=== PATIENT | male | born 1940 | race Caucasian/White ===

== ENCOUNTER 2018-08-11 06:29 | Inpatient (IN) | payer MEDICARE, OTHER ==
[2018-08-11] VITALS (24 sets, daily range): BP systolic 55–237; BP diastolic 37–212; PULSE 91–129; RESP 17–65; Ht 175.3 cm; Wt 60.4 kg
[~2018-08-11] VITALS: Ht 175.3 cm; Wt 60.4 kg
[~2018-08-11 06:29] MED LIST: ACET325T33 PO; AMLO-145 PO; ASPI-831 PO; BENA40TA54 PO; CHOL200035 PO; DOCU-144 PO; FAMO40TA66; FINA5TAB PO; FLUC100T; HYDR-1666 PO; MEGE625O PO; MEMA5TAB PO; OMEG-135 PO; SERT20OR PO; SIMV20TA2 PO
[2018-08-11] MEDS ORDERED: PIPER-TAZO 3.375 GM IV (PMX) 100 ML IVPB STA (06:32)
[2018-08-11] MEDS ORDERED: VANCOMYCIN 1 GM (PMX) 250 ML IVPB STA (06:32)
[2018-08-11] MEDS ORDERED: SODIUM CHLORIDE 0.9% 1L BAG IV* STA (07:03)
[2018-08-11] MEDS ORDERED: ACETAMINOPHEN 325 MG TAB PO PRN (08:30)
[2018-08-11] MEDS ORDERED: LORAZEPAM 2 MG INJ IV ONE ×2 (08:30→21:30)
[2018-08-11] MEDS ORDERED: ONDANSETRON 4 MG INJ IV PRN ×2 (08:30→13:30)
[2018-08-11] MEDS ORDERED: HALOPERIDOL 5 MG INJ IM ONE (09:00)
[2018-08-11] MEDS ORDERED: ACETAMINOPHEN 650MG/20.3ML CUP GTB ONE (09:00)
--- NOTE | 2018-08-11 09:17 | ERD ---
ER Documentation Chief Complaint Chief Complaint PT BIB RA from [facility] with complain SOB and desaturation today. HPI Patient is a 78-year-old male with previous stroke who presents for pneumonia. Please note the history and physical exam is limited secondary to the patient's mental status at baseline. He is nonverbal. Patient was brought in by ambulance. He came from [facility]. He was transferred for low oxygen saturation and pneumonia. He is warm to touch. He has rhonchi diffusely. His oxygen was 80s on 2 L nasal cannula but is now 99% on 15 L by paramedics. His blood sugar was within normal limits. He was given normal saline 500 mL bolus by paramedics. His primary doctor is Dr. Imer Solomon. ROS All systems reviewed and are negative except as per history of present illness. Medications Home Meds Reported Medications Fluconazole* (Diflucan*) 100 Mg Tablet, DAILY 03/19/13 Famotidine* (Pepcid*) 40 Mg Tablet, DAILY 03/19/13 Sertraline Hcl* (Zoloft*) 20 Mg/Ml Oral.conc, 25 MG PO HS 02/21/13 Cholecalciferol (Vitamin D3) 2,000 Unit Capsule, 2000 UNIT PO DAILY 02/21/13 Hydrocodone Bit/Acetaminophen (Vicodin 5/500 Tablet) 1 Tab Tablet, 1 TAB PO Q6HRS PRN 02/21/13 Simvastatin (Simvastatin) 20 Mg Tablet, 20 MG PO HS 02/21/13 Finasteride* (Proscar*) 5 Mg Tablet, 5 MG PO HS 02/21/13 Memantine* (Namenda*) 5 Mg Tablet, 5 MG PO BID 02/21/13 Megestrol Acetate* (Megace ES*) 625 Mg/5 Ml Oral.susp, 10 ML PO DAILY 02/21/13 Benazepril Hcl* (Lotensin*) 40 Mg Tablet, 20 MG PO DAILY 02/21/13 Fish Oil* (Fish Oil*) 1,000 Mg Cap, 1000 MG PO DAILY 02/21/13 Docusate Sodium* (Colace*) 100 Mg Capsule, 100 MG PO DAILY 02/21/13 Aspirin (Aspirin) 81 Mg Chew, 81 MG PO DAILY 02/21/13 Amlodipine Besylate* (Amlodipine Besylate*) 5 Mg Tablet, 5 MG PO DAILY 02/21/13 Acetaminophen* (Tylenol*) 325 Mg Tablet, 650 MG PO BID 02/21/13 Allergies Allergies: Coded Allergies: No Known Allergy (Unverified , 06/04/14) PMhx/Soc History of Surgery: Yes (gt placement) Anesthesia Reaction: No (unknown) Hx Neurological Disorder: Yes (stroke. dementia, Parkinson's disease) Hx Respiratory Disorders: Yes (pnuemonia, COPD) Hx Cardiac Disorders: Yes (htn,) Hx Psychiatric Problems: Yes (anxiety) Hx Miscellaneous Medical Probl: Yes (dysphagia, gout, BPH, osteoporosis, Hyperlipidemia.) Smoking Status: Never smoker FmHx Unable to obtain Physical Exam Vitals Vital Signs Date Temp Pulse Resp B/P (MAP) Pulse Ox O2 O2 Flow FiO2 Time Delivery Rate 08/11/18 102.7 133 32 103/54 100 Mask 6.0 08:58 (70) 08/11/18 Non 15.0 07:00 Rebreathe r 08/11/18 99.4 102 22 98/68 (78) 100 07:00 08/11/18 Non 15 07:00 Rebreathe r Physical Exam Const: Moderate distress Head: Atraumatic Eyes: Normal Conjunctiva ENT: Normal External Ears, Nose and Mouth. Neck: Full range of motion. No meningismus. Resp: Tachypnea Cardio: Tachycardic rate without murmur Abd: Soft, non tender, non distended. Normal bowel sounds Skin: No petechiae or rashes Back: No midline or flank tenderness Ext: No cyanosis, or edema Neur: Awake but nonverbal at baseline Result Diagram: 08/11/18 0650 08/11/18 0650 Results 24 hrs Laboratory Tests Test 08/11/18 06:50 08/11/18 06:52 08/11/18 07:20 08/11/18 08:46 White Blood Count 13.9 10^3/ul Red Blood Count 3.63 10^6/ul Hemoglobin 11.6 g/dl Hematocrit 39.2 % Mean Corpuscular 108.0 fl Volume Mean Corpuscular 32.0 pg Hemoglobin Mean Corpuscular 29.6 g/dl Hemoglobin Concen t Red Cell 14.6 % Distribution Width Platelet Count 319 10^3/UL Mean Platelet 10.9 fl Volume Immature 0.300 % Granulocytes % Neutrophils % 83.7 % Lymphocytes % 9.3 % Monocytes % 6.2 % Eosinophils % 0.1 % Basophils % 0.4 % Nucleated Red 0.0 /100WBC Blood Cells % Immature 0.040 10^3/ul Granulocytes # Neutrophils # 11.7 10^3/ul Lymphocytes # 1.3 10^3/ul Monocytes # 0.9 10^3/ul Eosinophils # 0.0 10^3/ul Basophils # 0.1 10^3/ul Nucleated Red 0.0 10^3/ul Blood Cells # Prothrombin Time 16.2 Sec Prothrombin Time 1.3 Ratio INR International 1.29 Normalized Ratio Activated 36.6 Sec Partial Thrombopl ast Time Sodium Level 157 mmol/L Potassium Level 5.1 mmol/L Chloride Level 120 mmol/L Carbon Dioxide 33 mmol/L Level Anion Gap 4 Blood Urea 43 mg/dl Nitrogen Creatinine 1.77 mg/dl Est Glomerular mL/min Filtrat Rate mL/min Glucose Level 169 mg/dl Calcium Level 9.3 mg/dl Total Bilirubin 0.5 mg/dl Direct Bilirubin 0.00 mg/dl Indirect 0.5 mg/dl Bilirubin Aspartate Amino 14 IU/L Transf (AST/SGOT) Alanine 24 IU/L Aminotransferase (ALT/SGPT) Alkaline 114 IU/L Phosphatase Troponin I 0.030 ng/ml Total Protein 8.4 g/dl Albumin 3.6 g/dl Globulin 4.80 g/dl Albumin/Globulin 0.75 Ratio POC Venous 2.0 mmol/L 3.7 mmol/L Lactate Urine Color CLAUDIA Urine Clarity CLOUDY Urine pH 5.0 Urine Specific 1.024 [place] Urine Ketones TRACE mg/dL Urine Nitrite NEGATIVE mg/dL Urine Bilirubin NEGATIVE mg/dL Urine 1+ mg/dL Urobilinogen Urine Leukocyte 1+ Carol/ul Esterase Urine Microscopic 12 /HPF RBC Urine Microscopic 45 /HPF WBC Urine Bacteria FEW /HPF Urine Hyaline FEW /HPF Casts Urine Mucus FEW /HPF Urine Hemoglobin NEGATIVE mg/dL Urine Glucose NEGATIVE mg/dL Urine Total 2+ mg/dl Protein Current Medications Medications Dose Sig/Flavia Start Time Status Last (Trade) Ordered Route PRN Stop Time Admin Dose Reason Admin Vancomycin 250 ml @ ONCE STAT 08/11/18 DC 08/11/18 HCl 125 mls/hr IVPB 06:32 07:54 08/11/18 08:31 Piperacillin 100 ml @ ONCE STAT 08/11/18 DC 08/11/18 Sod/ 200 mls/hr IVPB 06:32 07:05 Tazobactam 08/11/18 07:01 Sod Sodium 1,910 ml BOLUS OVER 2 08/11/18 DC 08/11/18 Chloride HOURS STAT 07:03 07:09 (NS) IV* 08/11/18 07:04 Ondansetron 4 mg ER BRIDGE 08/11/18 HCl (Zofran PRN IV 08:30 Inj) NAUSEA/VOMITI 08/12/18 08:29 NG 650 mg ER BRIDGE 08/11/18 Acetaminophen PRN PO 08:30 (Tylenol .MILD PAIN 08/12/18 08:29 Tab) 1-3 OR TEMP Lorazepam 1 mg ONCE ONCE 08/11/18 DC 08/11/18 (Ativan) IV 08:30 08:27 08/11/18 08:31 Haloperidol 5 mg ONCE ONCE 08/11/18 DC 08/11/18 (Haldol) IM 09:00 08:51 08/11/18 09:01 650 mg ONCE ONCE 08/11/18 DC Acetaminophen GTB 09:00 (Tylenol 08/11/18 09:01 Liquid) Procedures/MDM EKG read by me: Rate/Rhythm: Sinus tachycardia Intervals: Normal Impression: Tach cardia without ischemia Chest x-ray shows pneumonia per radiology. Sepsis Documentation: Patient's infectious symptoms have not stabilized and the patient is at risk of rapid decompensation. The patient will be admitted for careful hydration, antibiotic therapy, and infectious source control. SEVERE SEPSIS CRITERIA: Infectious source: Pneumonia End organ damage indicated by: Respiratory failure and lactic acid greater than 2. SEPSIS MANAGEMENT Time of recognition of sepsis: 6:52 AM. Time of recognition of severe sepsis: 6:52 AM. Time of recognition of septic shock: No septic shock at this time. 3 HOUR BUNDLE Blood cultures x 2 before broad-spectrum antibiotics: Yes 30 ml/kg NS bolus completed Initial lactate 2.0 Repeat lactate 3.7 SEPTIC SHOCK ASSESSMENT: No lactic acid > 4.0 No persistent hypotension (SBP < 90 or 40 mmHg drop, MAP < 65) despite 30 mL/kg IV fluid bolus VOLUME REASSESSMENT FOR SEPTIC SHOCK: No septic shock PERSISTENT HYPOTENSION TREATMENT: Comfort care no Central line not Required Vasopressor started not required I considered further perfusion assessment with CVP measurement, SCVO2, bedside ultrasound volume assessment, passive leg raise, trial of further fluid bolus. And proceeded with 30 ml/kg fluid bolus of NSS, broad spectrum antibiotics, and admission. Patient was given vancomycin and Zosyn. Patient will be admitted to the care of the panel team as we have called the primary doctor without return phone call. CRITICAL CARE Critical care time 35 minutes Emergent fluid management while maintaining close respiratory support. Provision of immediate and broad-spectrum antibiotic therapy. Simultaneous assessment for possible sources in order to direct targeted therapy. Consideration for invasive and chemical support to prevent cardiopulmonary collapse. Critical care time is independent of procedures performed. Departure Diagnosis: Primary Impression: Severe sepsis Additional Impressions: PNA (pneumonia) Pneumonia type: due to unspecified organism Laterality: left Lung location: lower lobe of lung Qualified Codes: J18.1 - Lobar pneumonia, unspecified organism Hypernatremia Respiratory failure Chronicity: acute Respiratory failure complication: hypoxia Qualified Codes: J96.01 - Acute respiratory failure with hypoxia Hypoxia Cystitis Dehydration Condition: Serious SOLEDAD CHILD MD August 11, 2018 09:17
[2018-08-11] MEDS ORDERED: ACET325T45 GTB (09:49)
[2018-08-11] MEDS ORDERED: DIVA-75 GTB (09:50)
[2018-08-11] MEDS ORDERED: ASPI-817 GTB (09:50)
[2018-08-11] MEDS ORDERED: POLY17PO6 GTB (09:51)
[2018-08-11] MEDS ORDERED: CLOP75TA19 PO (09:53)
[2018-08-11] MEDS ORDERED: OLAN5TAB36 GTB (09:53)
[2018-08-11] MEDS ORDERED: POTA20LI15 GTB (09:55)
[2018-08-11] MEDS ORDERED: PANT40TA3 GTB (09:56)
[2018-08-11] MEDS ORDERED: SENN-120 GTB (09:56)
[2018-08-11] MEDS ORDERED: NORepinephrine 8MG/250 ML (PMX 250 ML IV STA (10:27)
[2018-08-11] MEDS ORDERED: SOD CHLORIDE 0.9% 1,000 ML IV STA (10:27)
[2018-08-11] MEDS ORDERED: LIDOCAINE 1% (MPF) 5 ML VIAL SC ONE (10:30)
[2018-08-11] MEDS ORDERED: KETOROLAC 30 MG INJ IV STA (10:56)
--- NOTE | 2018-08-11 13:27 | HP ---
Date/Time of Note Date/Time of Note DATE: 08/11/18 TIME: 13:21 Assessment/Plan VTE Prophylaxis Pharmacological prophylaxis: heparin Lines/Catheters IV Catheter Type (from Nrs): Saline Lock Assessment/Plan Hospital Course 78-year-old male with chronic encephalopathy, nonverbal at baseline after cerebrovascular accident sent from [facility] facility with shortness of breath and desaturation admitted and managed as follows: 1. Severe sepsis with septic shock and lactic acidosis likely secondary to #2 and #3 2. Left lower lobe consolidation and probable pneumonia 3. Probable urinary tract infection 4. History of cerebrovascular accident. / Advanced dementia / Bedridden state / non verbal at baseline / Chronically contracted 5. Percutaneous endoscopic gastrostomy tube feeding. 6. Coronary artery disease -on asa / plavix 7. Acute renal insufficiency 8. Severe hypernatremia likely secondary to dehydration 9. Chronic megaloblastic anemia stable Plan: Admit ICU as patient is currently requiring vasopressor support Commence empiric antibiotics, shrestha cultures Rule out acute coronary syndrome, get a 2D echo Continue previous meds and ICU supportive care Family conference to discuss goals of care, per post form in the chart patient is full code Overall prognosis is guarded Gently rehydrate as patient is high risk for respiratory failure requiring endotracheal intubation and ventilator support Further interventions per clinical course . Result Diagram: 08/11/18 0650 08/11/18 0650 Results 24hrs Laboratory Tests Test 08/11/18 06:50 08/11/18 06:52 08/11/18 07:20 08/11/18 08:46 White Blood Count 13.9 #H Red Blood Count 3.63 L Hemoglobin 11.6 L Hematocrit 39.2 L Mean Corpuscular 108.0 H Volume Mean Corpuscular 32.0 Hemoglobin Mean Corpuscular 29.6 L Hemoglobin Concen t Red Cell 14.6 H Distribution Width Platelet Count 319 Mean Platelet 10.9 H Volume Immature 0.300 Granulocytes % Neutrophils % 83.7 H Lymphocytes % 9.3 L Monocytes % 6.2 Eosinophils % 0.1 Basophils % 0.4 Nucleated Red 0.0 Blood Cells % Immature 0.040 H Granulocytes # Neutrophils # 11.7 H Lymphocytes # 1.3 Monocytes # 0.9 Eosinophils # 0.0 Basophils # 0.1 Nucleated Red 0.0 Blood Cells # Prothrombin Time 16.2 H Prothrombin Time 1.3 Ratio INR International 1.29 Normalized Ratio Activated 36.6 H Partial Thrombopl ast Time Sodium Level 157 H Potassium Level 5.1 Chloride Level 120 H Carbon Dioxide 33 H Level Anion Gap 4 L Blood Urea 43 H Nitrogen Creatinine 1.77 H Est Glomerular Filtrat Rate mL/min Glucose Level 169 Calcium Level 9.3 Total Bilirubin 0.5 Direct Bilirubin 0.00 Indirect 0.5 Bilirubin Aspartate Amino 14 L Transf (AST/SGOT) Alanine 24 Aminotransferase (ALT/SGPT) Alkaline 114 Phosphatase Troponin I 0.030 Total Protein 8.4 H Albumin 3.6 Globulin 4.80 H Albumin/Globulin 0.75 Ratio POC Venous 2.0 3.7 *H Lactate Urine Color CLAUDIA Urine Clarity CLOUDY A Urine pH 5.0 Urine Specific 1.024 [place] Urine Ketones TRACE A Urine Nitrite NEGATIVE Urine Bilirubin NEGATIVE Urine 1+ H Urobilinogen Urine Leukocyte 1+ H Esterase Urine Microscopic 12 H RBC Urine Microscopic 45 H WBC Urine Bacteria FEW A Urine Hyaline FEW A Casts Urine Mucus FEW A Urine Hemoglobin NEGATIVE Urine Glucose NEGATIVE Urine Total 2+ H Protein Test 08/11/18 09:56 08/11/18 12:35 Lactic Acid Level 6.7 *H Blood Gas Blood arterial Specimen Source Arterial Blood 08/11/2018 12:33: Date Drawn 27 PM Arterial Blood pH 7.456 H (Temp corrected) Arterial Blood 33.5 L pCO2 (Temp correct) Arterial Blood 83.6 pO2 (Temp corrected) Arterial Blood 23.1 HCO3 Arterial Blood -0.4 Base Excess Arterial Blood 95.8 Oxygen Saturation Gee Test ACCEPTAB Arterial Blood Right Radial Gas Puncture Site Arterial 0.3 Blood Carboxyhemo globin Arterial Blood 0.3 Methemoglobin Blood Gas A-a O2 256.9 H Differential Oxyhemoglobin 95.2 Percent Blood Gas 37.0 Temperature Blood Gas MASK - SIMPLE Modality FiO2 53.0 Blood Gas M.D. Notified Whom Blood Gas 08/11/2018 12:43: Notified Time 30 PM HPI/ROS Admit Date/Time Admit Date/Time Hx of Present Illness 78-year-old male chronically very well and encephalopathic who was sent via the emergency room physician notes from long-term via ambulance due to low oxygen saturation and pneumonia. Apparently he dropped his saturations to as low as 80s even on oxygen. Patient is acutely ill looking. ROS Subjective hx not possible: pt non-verbal, pt critical status PMH/Family/Social Past Medical History Medications Current Medications Ondansetron HCl (Zofran Inj) 4 mg ER BRIDGE PRN IV NAUSEA/VOMITING; Start 08/11/18 at 08:30; Stop 08/12/18 at 08:29 Acetaminophen (Tylenol Tab) 650 mg ER BRIDGE PRN PO .MILD PAIN 1-3 OR TEMP; Start 08/11/18 at 08:30; Stop 08/12/18 at 08:29 Norepinephrine 250 ml @ 7.5 mls/hr ONCE STAT IV Last administered on 08/11/18at 10:31; Admin Dose 7.5 MLS/HR; Start 08/11/18 at 10:27; Stop 08/12/18 at 19:46 Sodium Chloride 1,000 ml @ 80 mls/hr [id number] IV ; Start 08/11/18 at 13:10; Status UNV Ondansetron HCl (Zofran Inj) 4 mg Q6H PRN IV NAUSEA AND/OR VOMITING; Start 08/11/18 at 13:30; Status UNV Albuterol/ Ipratropium (Duoneb) 3 ml Q4H RESP THERAPY NEB ; Start 08/11/18 at 17:00; Status UNV Albuterol/ Ipratropium (Duoneb) 3 ml Q2H RESP THERAPY PRN NEB SHORTNESS OF BREATH; Start 08/11/18 at 13:30; Status UNV Acetaminophen (Tylenol Liquid) 650 mg Q6H PRN PO PAIN LEVEL 1-3 OR FEVER; Start 08/11/18 at 13:30; Status UNV Docusate Sodium (Colace) 100 mg Q12H PO ; Start 08/11/18 at 13:30; Status UNV Pantoprazole (Protonix Tab) 40 mg DAILY@06 PO ; Start 08/12/18 at 06:00; Status UNV Heparin Sodium (Porcine) (Heparin (5000 Units/1ml)) 5,000 unit Q12 SC ; Start 08/11/18 at 21:00; Status UNV Norepinephrine 250 ml @ 1.875 mls/ hr PER PROTOCOL IV ; Start 08/11/18 at 13:30; Status UNV Aspirin (Halfprin) 81 mg DAILY PO ; Start 08/12/18 at 09:00; Status UNV Clopidogrel Bisulfate (plaVIX) 75 mg DAILY PO ; Start 08/12/18 at 09:00; Status UNV Divalproex Sodium (Depakote Er) 500 mg BID PO ; Start 08/11/18 at 21:00; Status UNV Polyethylene Glycol (Miralax) 17 gm DAILY GTB ; Start 08/12/18 at 09:00; Status UNV Coded Allergies: No Known Allergy (Unverified , 08/11/18) Social History Smoking Status: Never smoker Exam/Review of Systems Vital Signs Vitals Vital Signs Date Temp Pulse Resp B/P (MAP) Pulse Ox O2 O2 Flow FiO2 Time Delivery Rate 08/11/18 101 30 90/54 (66) 100 Mask 8.0 11:30 08/11/18 103.9 10:38 Exam Exam Constitutional: non-verbal, other (obese, elderly, Patient barely responsive, not following commands or tracking), tachypneic, tachycardic Eyes open spontaneously, No oriented, No distress Psych: other (unable to assess) Head: normocephalic, atraumatic Eyes: PERRL, No icteric ENMT: No mucosa pink and moist (dry) Neck: non-tender Respiratory: diminished breath sounds, No labored breathing Cardiovascular: regular rate and rhythm, No murmurs/extra sounds Gastrointestinal: soft, non-tender, bowel sounds, other (PEG tube noted with no cellulitis or discharge) Genitourinary - male: nl external genitalia Extremities: Chronically contracted with Functional quadriplegia Neurological: lethargic, other (altered, eyes opening spontaneously but no tracking or following commands), No nl mental status, No nl speech, No nl strength Additional Comments EKG on my review shows sinus tachycardia with multiple PVCs PROCEDURE: XR Chest. CLINICAL INDICATION: Sepsis TECHNIQUE: AP portable semi upright chest was obtained COMPARISON: Chest 06/05/2014 FINDINGS: The patient is tilted to the left and rotated to the right. Hypoventilatory chest. Heart within normal limits in size. No evidence of pulmonary vascular congestion. M patchy consolidation at the left base silhouetting the left hemidiaphragm may be due to atelectasis still rule out pneumonia. No other lung consolidation. Chronic bilateral perihilar and lower lung interstitial lung di sease. No pleural effusions and pneumothorax. IMPRESSION: 1. Left lower lobe consolidation and rule out pneumonia. 2. No evidence of congestive heart failure. RPTAT:AAJJ Physician [place] Date Time Electronically viewed and signed by Cristian Herrera Physician on 08/11/2018 06:56 BM/ CC: SOLEDAD CHILD MD [id number] ROHAN NOLASCO August 11, 2018 13:27
[2018-08-11] MEDS ORDERED: ACETAMINOPHEN 650MG/20.3ML CUP PO PRN (13:30)
[2018-08-11] MEDS ORDERED: ALBUTEROL/IPRATROPIUM (NEB) 3 ML AMP NEB PRN (13:30)
[2018-08-11] MEDS ORDERED: NORepinephrine 8MG/250 ML (PMX 250 ML IV SCH (13:30)
[2018-08-11] MEDS ORDERED: VANCOMYCIN IV PER PHARMACY XX SCH (13:30)
[2018-08-11] MEDS: PIPER-TAZO 2.25 GM (PMX) 50 ML IVPB SCH (17:00)
[2018-08-11] MEDS: SOD CHLORIDE 0.9% 1,000 ML IV SCH (18:11)
[2018-08-11] MEDS: LORAZEPAM 2 MG INJ IV PRN (18:37)
[2018-08-11] MEDS ORDERED: LABETALOL HCL 20MG INJ ONE (20:17)
[2018-08-11] MEDS ORDERED: LABETALOL HCL 20MG INJ IV ONE ×2 (20:30→21:00)
[2018-08-11] MEDS: ALBUTEROL/IPRATROPIUM (NEB) 3 ML AMP NEB SCH (20:33)
[2018-08-11] MEDS ORDERED: DOCUSATE SODIUM 100 MG CAP PO SCH (21:00)
[2018-08-11] MEDS ORDERED: DIVALPROEX (ER) 500 MG TAB PO SCH (21:00)
[2018-08-11] MEDS ORDERED: HEPARIN 5,000 UNIT/1 ML VIAL SC SCH (21:00)
[2018-08-12] VITALS (45 sets, daily range): BP systolic 74–129; BP diastolic 37–72; PULSE 52–128; RESP 20–58
[2018-08-12] MEDS: LORAZEPAM 2 MG INJ IV PRN ×2 (00:30→06:50)
[2018-08-12] MEDS ORDERED: LORAZEPAM 2 MG INJ IV ONE (00:30)
[2018-08-12] MEDS: PIPER-TAZO 2.25 GM (PMX) 50 ML IVPB SCH (00:33)
[2018-08-12] MEDS ORDERED: SOD CHLORIDE 0.9% 500 ML IV ONE ×2 (01:00→06:30)
[2018-08-12] MEDS: ALBUTEROL/IPRATROPIUM (NEB) 3 ML AMP NEB SCH ×3 (01:55→08:43)
[2018-08-12] MEDS: SOD CHLORIDE 0.9% 1,000 ML IV SCH (03:42)
[2018-08-12] MEDS ORDERED: PANTOPRAZOLE (EC) 40 MG TAB PO SCH (06:00)
[2018-08-12] MEDS ORDERED: PANTOPRAZOLE 40 MG INJ IV SCH (06:00)
[2018-08-12] MEDS ORDERED: ASPIRIN (EC) 81 MG TAB PO SCH (09:00)
[2018-08-12] MEDS ORDERED: CLOPIDOGREL 75 MG TAB PO SCH (09:00)
[2018-08-12] MEDS ORDERED: POLYETHYLENE GLYCOL 17 GM PACKET GTB SCH (09:00)
[2018-08-12] MEDS ORDERED: ASPIRIN 81 MG TAB GTB SCH (09:00)
[2018-08-12] MEDS ORDERED: VALPROIC ACID LIQUID CUP 250 MG/5 ML CUP GTB SCH (09:00)
[2018-08-12] MEDS ORDERED: morphine 4 MG/ML VIAL IV STA (09:17)
--- NOTE | 2018-08-12 09:19 | PN ---
Date/Time of Note Date/Time of Note DATE: 08/12/18 TIME: 09:19 Assessment/Plan VTE Prophylaxis Risk score (from N[facility])>0 risk: 11 SCD applied (from [facility]): Yes Pharmacological prophylaxis: heparin Lines/Catheters IV Catheter Type (from [facility]): Central Line Central line still needed: Yes Urinary Cath still in place: Yes Reason Cath still needed: other (indicate) Assessment/Plan Hospital Course S: worsening resp distress, 78-year-old male with chronic encephalopathy, nonverbal at baseline after cerebrovascular accident sent from assisted facility with shortness of breath and desaturation admitted and managed as follows: 1. Severe sepsis with septic shock and lactic acidosis likely secondary to #2 and #3 2. Left lower lobe consolidation and probable pneumonia 3. Probable urinary tract infection 4. History of cerebrovascular accident. / Advanced dementia / Bedridden state / non verbal at baseline / Chronically contracted 5. Percutaneous endoscopic gastrostomy tube feeding. 6. Coronary artery disease -on asa / plavix 7. Acute renal insufficiency 8. Severe hypernatremia likely secondary to dehydration 9. Chronic megaloblastic anemia stable Plan: Spoke at length with patient's daughters, reviewed patient's clinical state with them, after extensive conversation and discussion, family have opted for comfort measures. They also opted for terminal extubation, but they want his daughters to visit with him prior to extubation. Hence at this point, we will not further escalate care, once family gives the authorization we will go ahead and instit tanana comfort measures only and discontinue all aggressive measures. Patient at this time is a DO NOT RESUSCITATE DO NOT INTUBATE. . CRITICAL CARE TIME: >35 mins of which more than half was spent at the bedside and during counselling Result Diagram: 08/12/18 0439 08/12/18 0439 Results 24hrs Laboratory Tests Test 08/11/18 09:56 08/11/18 12:35 08/11/18 13:20 08/11/18 19:23 Lactic Acid 6.7 *H 3.5 *H Level Blood Gas Blood arterial Specimen Source Arterial Blood 08/11/2018 12:33 Date Drawn :27 PM Arterial Blood 7.456 H pH (Temp corrected) Arterial Blood 33.5 L pCO2 (Temp correct) Arterial Blood 83.6 pO2 (Temp corrected) Arterial Blood 23.1 HCO3 Arterial Blood -0.4 Base Excess Arterial Blood 95.8 Oxygen Saturatio n Gee Test ACCEPTAB Arterial Blood Right Radial Gas Puncture Site Arterial 0.3 Blood Carboxyhem oglobin Arterial Blood 0.3 Methemoglobin Blood Gas A-a O2 256.9 H Differential Oxyhemoglobin 95.2 Percent Blood Gas 37.0 Temperature Blood Gas MASK - SIMPLE Modality FiO2 53.0 Blood Gas M.D. Notified Whom Blood Gas 08/11/2018 12:43 Notified Time :30 PM Potassium Level 5.3 H 5.0 Magnesium Level 2.4 Creatine Kinase 106 226 H Creatine Kinase 1.3 0.9 Index Creatinine 1.42 2.13 Kinase MB (Mass) Troponin I 0.044 0.044 Valproic Acid < 10 L (Depakene) Level Sodium Level 156 H Chloride Level 126 H Carbon Dioxide 24 Level Anion Gap 6 Blood Urea 43 H Nitrogen Creatinine 1.73 H Est Glomerular Filtrat Rate mL/min Glucose Level 91 # Calcium Level 7.8 L Test 08/12/18 00:00 08/12/18 03:00 08/12/18 04:00 08/12/18 04:39 Blood Gas Blood arterial Blood arterial Specimen Source Arterial Blood 08/11/2018 11:20 08/12/2018 3:05: Date Drawn :45 PM 30 AM Arterial Blood 7.501 H 7.396 pH (Temp corrected) Arterial Blood 31.0 L 35.2 pCO2 (Temp correct) Arterial Blood 173.0 H 226.1 H pO2 (Temp corrected) Arterial Blood 23.7 21.1 L HCO3 Arterial Blood 1.0 -3.3 L Base Excess Arterial Blood 98.9 99.0 Oxygen Saturatio n Gee Test ACCEPTAB ACCEPTAB Arterial Blood Left Radial Left Radial Gas Puncture Site Arterial 0.2 0.2 Blood Carboxyhem oglobin Arterial Blood 0.5 0.6 Methemoglobin Blood Gas A-a O2 509.0 H 163.0 H Differential Oxyhemoglobin 98.2 98.2 Percent Blood Gas 37.0 37.0 Temperature Blood Gas Actual 54 43 Respiration Rate Blood Gas MASK - BIPAP MASK - BIPAP Modality FiO2 100.0 60.0 Blood Gas 10 Pressure Support Blood Gas 29/07 29/07 IPAP/EPAP Ratio Blood Gas MR HASKINS Notified Whom Blood Gas 08/11/2018 11:31 08/12/2018 3:19: Notified Time :19 PM 18 AM Blood Gas 18.0 Respiration Rate Lactic Acid 3.9 *H Level White Blood 9.9 # Count Red Blood Count 2.46 #L Hemoglobin 8.0 #L Hematocrit 27.3 #L Mean Corpuscular 111.0 H Volume Mean Corpuscular 32.5 Hemoglobin Mean Corpuscular 29.3 L Hemoglobin Shaye nt Red Cell 15.4 H Distribution Width Platelet Count 211 # Mean Platelet 12.0 H Volume Immature 0.600 H Granulocytes % Neutrophils % Segmented 13 L Neutrophils % (Manual) Band Neutrophils 53 H % (Manual) Lymphocytes % Lymphocytes % 21 (Manual) Monocytes % Monocytes % 1 (Manual) Eosinophils % Basophils % Metamyelocytes % 8 H (manual) Myelocytes % 4 H (Manual) Nucleated Red 0.0 Blood Cells % Immature 0.060 H Granulocytes # Neutrophils # Neutrophils # 1.8 (Manual) Band Neutrophils 5.2 H # Lymphocytes 2.0 (Manual) Lymphocytes # Monocytes # Monocytes # 0.0 L (Manual) Eosinophils # Basophils # Metamyelocytes # 0.7 H Myelocytes # 0.3 H Nucleated Red Blood Cells # Toxic 1+ Granulation Platelet NORMAL Estimate Giant Platelets 1 H Polychromasia 1+ Anisocytosis 1+ Sodium Level 159 H Potassium Level 4.8 Chloride Level 129 H Carbon Dioxide 24 Level Anion Gap 6 Blood Urea 44 H Nitrogen Creatinine 1.76 H Est Glomerular Filtrat Rate mL/min Glucose Level 76 Calcium Level 7.4 L Phosphorus Level 3.1 Magnesium Level 2.0 Subjective 24 Hr Interval Summary Subjective hx not possible: pt critical status Exam/Review of Systems Exam Vitals Vital Signs Date Temp Pulse Resp B/P (MAP) Pulse Ox O2 O2 Flow FiO2 Time Delivery Rate 08/12/18 103 39 97/55 (69) 06:30 08/12/18 99 BIPAP 06:00 08/12/18 40 05:16 08/12/18 99.6 04:00 08/11/18 6.0 23:00 Intake and Output 08/11/18 08/11/18 08/12/18 1515:00 23:00 07:00 IntakeIntake Total 3010 ml 516.5 ml 1406.65 ml OutputOutput Total 250 ml 330 ml BalanceBalance 3010 ml 266.5 ml 1076.65 ml Exam General: Intubated on vent support CARDIAC: S1, S2, no added sounds or murmurs. CHEST: Diminished air entry bilaterally. ABDOMEN: Soft, nontender. No guarding or rebound. EXTREMITIES: No cyanosis, clubbing, 1+ edema. NEUROLOGIC: Unable to assess. Results Results 24hrs Laboratory Tests Test 08/11/18 09:56 08/11/18 12:35 08/11/18 13:20 08/11/18 19:23 Lactic Acid 6.7 *H 3.5 *H Level Blood Gas Blood arterial Specimen Source Arterial Blood 08/11/2018 12:33 Date Drawn :27 PM Arterial Blood 7.456 H pH (Temp corrected) Arterial Blood 33.5 L pCO2 (Temp correct) Arterial Blood 83.6 pO2 (Temp corrected) Arterial Blood 23.1 HCO3 Arterial Blood -0.4 Base Excess Arterial Blood 95.8 Oxygen Saturatio n Gee Test ACCEPTAB Arterial Blood Right Radial Gas Puncture Site Arterial 0.3 Blood Carboxyhem oglobin Arterial Blood 0.3 Methemoglobin Blood Gas A-a O2 256.9 H Differential Oxyhemoglobin 95.2 Percent Blood Gas 37.0 Temperature Blood Gas MASK - SIMPLE Modality FiO2 53.0 Blood Gas M.D. Notified Whom Blood Gas 08/11/2018 12:43 Notified Time :30 PM Potassium Level 5.3 H 5.0 Magnesium Level 2.4 Creatine Kinase 106 226 H Creatine Kinase 1.3 0.9 Index Creatinine 1.42 2.13 Kinase MB (Mass) Troponin I 0.044 0.044 Valproic Acid < 10 L (Depakene) Level Sodium Level 156 H Chloride Level 126 H Carbon Dioxide 24 Level Anion Gap 6 Blood Urea 43 H Nitrogen Creatinine 1.73 H Est Glomerular Filtrat Rate mL/min Glucose Level 91 # Calcium Level 7.8 L Test 08/12/18 00:00 08/12/18 03:00 08/12/18 04:00 08/12/18 04:39 Blood Gas Blood arterial Blood arterial Specimen Source Arterial Blood 08/11/2018 11:20 08/12/2018 3:05: Date Drawn :45 PM 30 AM Arterial Blood 7.501 H 7.396 pH (Temp corrected) Arterial Blood 31.0 L 35.2 pCO2 (Temp correct) Arterial Blood 173.0 H 226.1 H pO2 (Temp corrected) Arterial Blood 23.7 21.1 L HCO3 Arterial Blood 1.0 -3.3 L Base Excess Arterial Blood 98.9 99.0 Oxygen Saturatio n Gee Test ACCEPTAB ACCEPTAB Arterial Blood Left Radial Left Radial Gas Puncture Site Arterial 0.2 0.2 Blood Carboxyhem oglobin Arterial Blood 0.5 0.6 Methemoglobin Blood Gas A-a O2 509.0 H 163.0 H Differential Oxyhemoglobin 98.2 98.2 Percent Blood Gas 37.0 37.0 Temperature Blood Gas Actual 54 43 Respiration Rate Blood Gas MASK - BIPAP MASK - BIPAP Modality FiO2 100.0 60.0 Blood Gas 10 Pressure Support Blood Gas 29/07 29/07 IPAP/EPAP Ratio Blood Gas MR Notified Whom Blood Gas 08/11/2018 11:31 08/12/2018 3:19: Notified Time :19 PM 18 AM Blood Gas 18.0 Respiration Rate Lactic Acid 3.9 *H Level White Blood 9.9 # Count Red Blood Count 2.46 #L Hemoglobin 8.0 #L Hematocrit 27.3 #L Mean Corpuscular 111.0 H Volume Mean Corpuscular 32.5 Hemoglobin Mean Corpuscular 29.3 L Hemoglobin Shaye nt Red Cell 15.4 H Distribution Width Platelet Count 211 # Mean Platelet 12.0 H Volume Immature 0.600 H Granulocytes % Neutrophils % Segmented 13 L Neutrophils % (Manual) Band Neutrophils 53 H % (Manual) Lymphocytes % Lymphocytes % 21 (Manual) Monocytes % Monocytes % 1 (Manual) Eosinophils % Basophils % Metamyelocytes % 8 H (manual) Myelocytes % 4 H (Manual) Nucleated Red 0.0 Blood Cells % Immature 0.060 H Granulocytes # Neutrophils # Neutrophils # 1.8 (Manual) Band Neutrophils 5.2 H # Lymphocytes 2.0 (Manual) Lymphocytes # Monocytes # Monocytes # 0.0 L (Manual) Eosinophils # Basophils # Metamyelocytes # 0.7 H Myelocytes # 0.3 H Nucleated Red Blood Cells # Toxic 1+ Granulation Platelet NORMAL Estimate Giant Platelets 1 H Polychromasia 1+ Anisocytosis 1+ Sodium Level 159 H Potassium Level 4.8 Chloride Level 129 H Carbon Dioxide 24 Level Anion Gap 6 Blood Urea 44 H Nitrogen Creatinine 1.76 H Est Glomerular Filtrat Rate mL/min Glucose Level 76 Calcium Level 7.4 L Phosphorus Level 3.1 Magnesium Level 2.0 Medications Medication Current Medications Norepinephrine 250 ml @ 7.5 mls/hr ONCE STAT IV Last administered on 08/11/18at 10:31; Admin Dose 7.5 MLS/HR; Start 08/11/18 at 10:27; Stop 08/12/18 at 19:46 Sodium Chloride 1,000 ml @ 100 mls/hr Q10H IV Last administered on 08/12/18at 03:42; Admin Dose 100 MLS/HR; Start 08/11/18 at 13:10 Ondansetron HCl (Zofran Inj) 4 mg Q6H PRN IV NAUSEA AND/OR VOMITING; Start 08/11/18 at 13:30 Albuterol/ Ipratropium (Duoneb) 3 ml Q4H RESP THERAPY NEB Last administered on 08/12/18at 08:43; Admin Dose 3 ML; Start 08/11/18 at 17:00 Albuterol/ Ipratropium (Duoneb) 3 ml Q2H RESP THERAPY PRN NEB SHORTNESS OF BREATH; Start 08/11/18 at 13:30 Acetaminophen (Tylenol Liquid) 650 mg Q6H PRN PO PAIN LEVEL 1-3 OR FEVER Last administered on 08/11/18at 23:01; Admin Dose 650 MG; Start 08/11/18 at 13:30 Docusate Sodium (Colace) 100 mg Q12 PO Last administered on 08/11/18at 20:20; Admin Dose 100 MG; Start 08/11/18 at 21:00 Heparin Sodium (Porcine) (Heparin (5000 Units/1ml)) 5,000 unit Q12 SC Last administered on 08/11/18at 20:25; Admin Dose 5,000 UNIT; Start 08/11/18 at 21:00 Norepinephrine 250 ml @ 1.875 mls/ hr PER PROTOCOL IV ; Start 08/11/18 at 13:30 Clopidogrel Bisulfate (plaVIX) 75 mg DAILY PO ; Start 08/12/18 at 09:00 Polyethylene Glycol (Miralax) 17 gm DAILY GTB ; Start 08/12/18 at 09:00 Vancomycin HCl (Vanco Iv Per Pharmacy) VANCOMYCIN PER PHARMACY PER PROTOCOL XX ; Start 08/11/18 at 13:30 Piperacillin Sod/ Tazobactam Sod 50 ml @ 100 mls/hr Q8H IVPB Last administered on 08/12/18at 00:33; Admin Dose 100 MLS/HR; Start 08/11/18 at 17:00 Vancomycin HCl 250 ml @ 125 mls/hr Q36H IVPB ; Start 08/12/18 at 20:00 Lorazepam (Ativan) 1 mg Q4 PRN IV AGITATION Last administered on 08/12/18at 06:50; Admin Dose 1 MG; Start 08/11/18 at 18:30 Pantoprazole (Protonix Iv) 40 mg DAILY@06 IV Last administered on 08/12/18at 05:47; Admin Dose 40 MG; Start 08/12/18 at 06:00 Aspirin (Aspirin) 81 mg DAILY GTB ; Start 08/12/18 at 09:00 Valproate Sodium (Depakene Liquid Cup) 500 mg BID GTB ; Start 08/12/18 at 09:00 ROHAN NOLASCO August 12, 2018 09:19
[2018-08-12] MEDS ORDERED: morphine 2 MG INJ IV PRN (09:30)
[2018-08-12] MEDS ORDERED: ATROPINE 1% 5 ML OPH SL PRN (11:30)
[2018-08-12] MEDS ORDERED: LORAZEPAM 2 MG INJ IV PRN (11:30)
[2018-08-12] MEDS ORDERED: ONDANSETRON 4 MG INJ IV PRN (11:30)
[2018-08-12] MEDS: morphine (DRIP) 100 MG/100 ML 100 ML IV SCH (13:18)
--- NOTE | 2018-08-12 13:37 | CONS ---
DATE OF ADMISSION: 08/11/2018 DATE OF CONSULTATION: REASON FOR CONSULTATION: Shortness of breath. Thank you, Dr. Nolasco, for this consultation. HISTORY OF PRESENT ILLNESS: This is an unfortunate 78-year-old gentleman with multiple admissions to [facility], was admitted yesterday with increasing shortness of breath, orthopnea, PND, found to h ave extensive left lower lobe infiltrate with progressive hypoxemia. Overnight, his condition has de teriorated now requiring noninvasive positive pressure ventilation and vasopressor support. PAST MEDICAL HISTORY: Dementia, recurrent sepsis, dysphagia with G-tube. MEDICATIONS: Per chart. ALLERGIES: NONE. SOCIAL HISTORY: Nonsmoker, no alcohol, no history of drug use. FAMILY HISTORY: Noncontributory. SYSTEMS REVIEW: A 12-point review of systems unable to perform. PHYSICAL EXAMINATION: GENERAL: Chronically ill appearing gentleman on bilevel ventilation. VITAL SIGNS: Currently afebrile, pulse is 100, blood pressure 97/55, O2 saturation 99% on bilevel ve ntilation. NECK: Supple. JVD is mildly elevated. CARDIAC: S1, S2, no added sounds or murmurs. CHEST: Diminished air entry bilaterally. ABDOMEN: Soft, nontender. No guarding or rebound. EXTREMITIES: No cyanosis, clubbing, 1+ edema. NEUROLOGIC: Unable to assess. LABORATORY DATA: White count 9.9, hemoglobin 8, platelets of 211. BUN 44, creatinine 1.76. INR 1.2 9. IMPRESSION AND PLAN: 1. Progressive hypoxemic respiratory failure, likely secondary to healthcare-associated pneumonia, p ossible aspiration component. 2. History of dementia. 3. Dysphagia with G-tube. 4. Failure to thrive. PLAN: 1. Continue bilevel ventilation. 2. Family discussion regarding transition to comfort care. 3. Continue antibiotics and vasopressors for now. Dictated By: GERALDINE LUZ MD SV/NTS Conf#: [id number] DID#: [id number] CC: ROHAN NOLASCO MD;*EndCC*
[2018-08-12] MEDS ORDERED: VANCOMYCIN 1 GM 250 ML IVPB SCH (20:00)
[2018-08-13] MEDS: morphine (DRIP) 100 MG/100 ML 100 ML IV SCH ×2 (00:11→10:22)
[2018-08-13] MEDS ORDERED: LANSOPRAZOLE 30 MG CAP PO SCH (06:00)
--- NOTE | 2018-08-13 16:12 | PN ---
Date/Time of Note Date/Time of Note DATE: 08/13/18 TIME: 16:10 Assessment/Plan VTE Prophylaxis Risk score (from [facility] [place])>0 risk: 6 SCD applied (from [facility]): No SCD contraindicated: other Pharmacological prophylaxis: NA/contraindicated Pharm contraindication: other Lines/Catheters IV C[facility]ter Type (from [facility]): Central Line Central line still needed: Yes Urinary Cath still in place: Yes Reason Cath still needed: terminal illness/intractable pain Assessment/Plan Hospital Course S: Patient agonal but looks very comfortable on morphine drip o: Constitutional: obtunded, agonal Respiratory: shallow, slowed breathing Cardiovascular: s1, s2 assessment and plan: 1. Severe sepsis with septic shock and lactic acidosis likely secondary to #2 and #3 2. Left lower lobe consolidation and probable pneumonia 3. Probable urinary tract infection 4. History of cerebrovascular accident. / Advanced dementia / Bedridden state / non verbal at baseline / Chronically contracted 5. Percutaneous endoscopic gastrostomy tube feeding. 6. Coronary artery disease -on asa / plavix 7. Acute renal insufficiency 8. Severe hypernatremia likely secondary to dehydration 9. Chronic megaloblastic anemia stable Plan: now on comfort measures, patient expected to pass within hours, if not will be transitioned to hospice care Continue comfort measures Further interventions per clinical course . Result Diagram: 08/12/18 0439 08/12/18 0439 Exam/Review of Systems Exam Vitals Vital Signs Date Temp Pulse Resp B/P (MAP) Pulse Ox O2 O2 Flow FiO2 Time Delivery Rate 08/13/18 Nasal 2.0 09:15 Cannula 08/12/18 100.9 52 24 87/52 (64) 90 20:11 08/12/18 60 13:00 Intake and Output 08/12/18 08/12/18 08/13/18 1515:00 23:00 07:00 IntakeIntake Total 144 ml 68 ml 71.6 ml OutputOutput Total 560 ml 115 ml BalanceBalance -416 ml -47 ml 71.6 ml Medications Medication Current Medications Morphine Sulfate/ Sodium Chloride 100 ml @ 3 mls/hr TITRATE IV Last administered on 08/13/18at 10:22; Admin Dose 10 MLS/HR; Start 08/12/18 at 11:30 Lorazepam (Ativan) 2 mg Q2 PRN IV AGITATION; Start 5/29/19 at 11:30 Atropine Sulfate (Atropine 1% Oph) 2 drop Q2H PRN SL PRN SECRETIONS; Start 08/12/18 at 11:30 Ondansetron HCl (Zofran Inj) 4 mg Q4H PRN IV NAUSEA AND/OR VOMITING; Start 08/12/18 at 11:30 ROHAN NOLASCO August 13, 2018 16:12
--- NOTE | 2018-08-13 20:56 | EN ---
Date/Time of Note Date/Time of Note DATE: 08/13/18 TIME: 20:55 Event Note Medicine Medicine Event Note Pronouncement note Patient seen and examined at the bedside. Patient nonresponsive to verbal commands. Patient nonresponsive to vigorous sternal rub. Pupils fixed and dilated and nonreactive to light bilaterally. No heart sounds appreciated on auscultation. Patient pronounced at approximately 8:50 PM. Family present at the bedside. Primary team aware. MANDO MACEDO August 13, 2018 20:56
--- NOTE | 2018-08-14 23:18 | DES ---
Date/Time of Note Date/Time of Note DATE: 08/14/18 TIME: 23:15 Discharge/ Summary Admission/Discharge Info Admit Date/Time August 11, 2018 at 08:09 . Date/Time August 13, 2018 at 8:50 PM . Final Diagnosis S: 78-year-old male with chronic encephalopathy, nonverbal at baseline after cerebrovascular accident sent from [facility]-way facility with shortness of breath and desaturation admitted and managed as follows: 1. Severe sepsis with septic shock and lactic acidosis likely secondary to #2 and #3 2. Left lower lobe pneumonia and , Probable urinary tract infection 3. acute respiratory failure requiring Ventilator support 4. History of cerebrovascular accident. / Advanced dementia / Bedridden state / non verbal at baseline / Chronically contracted 5. Percutaneous endoscopic gastrostomy tube feeding. 6. Hx of Coronary artery disease 7. Acute renal insufficiency 8. Severe hypernatremia likely secondary to dehydration 9. Chronic megaloblastic anemia stable Preliminary Cause of Severe sepsis with septic shock . Hospital Course 78-year-old male with chronic encephalopathy, nonverbal at baseline after cerebrovascular accident who was sent from skilled facility with shortness of breath and desaturation hours managed for severe sepsis with septic shock secondary to left-sided pneumonia urinary tract infection. Patient was also found to be severely dehydrated with severe hyponatremia and acute renal insufficiency. He was initially admitted to the intensive care unit on aggressive antibiotic and supportive care initiated. Patient however decompensated and ended up requiring endotracheal intubation and ventilator support. Based on patient's quality of life and poor long-term prognosis, the family conference was done with the family, and the patient's children opted to make him comfort measures and a DO NOT RESUSCITATE. They also opted for terminal extubation. They did not want him to suffer, they also did not want him to have pain. He was therefore started on a low-dose morphine drip. Patient eventually passed August 13, 2018 at 8:50 PM. . ROHAN NOLASCO August 14, 2018 23:18
== END 2018-08-13 23:15 | disposition expired | DRG 871 ==
LOC: E/R 06:29 → ICU 08:09 → EDBEDREQSVC 10:56 → SUATTDRO 13:09 → MS1 08-12 19:38
PROVIDERS: ADMIT Family Medicine; ATTEND Family Medicine
PROC: 05H533Z Insertion of Infusion Device into Right Subclavian Vein, Percutaneous Approach (ICD-10-PCS; 2018-08-11)
PROC: 5A09458 Assistance with Respiratory Ventilation, 24-96 Consecutive Hours, Intermittent Positive Airway Pressure (ICD-10-PCS; principal; 2018-08-12)
DX: A41.9 Sepsis, unspecified organism (principal); J18.9 Pneumonia, unspecified organism; R65.21 Severe sepsis with septic shock; J96.01 Acute respiratory failure with hypoxia; E87.2 Acidosis; E87.0 Hyperosmolality and hypernatremia; N39.0 Urinary tract infection, site not specified; G93.40 Encephalopathy, unspecified; Z86.73 Personal history of transient ischemic attack (TIA), and cerebral infarction without residual deficits; F03.90 Unspecified dementia, unspecified severity, without behavioral disturbance, psychotic disturbance, mood disturbance, and anxiety; Z74.01 Bed confinement status; E86.0 Dehydration; D53.1 Other megaloblastic anemias, not elsewhere classified; Z66 Do not resuscitate
CPT/HCPCS: 36600; 71045; 80048; 80053; 80164; 81001; 82550; 82553; 82803; 83605; 83735; 84100; 84132; 84484; 85025; 85610; 85730; 87070; 87086; 89220; 93005; 94640; 94660; 94664; 96365; 96375; C9113; J1630; J1644; J1885; J2060; J2270; J2543; J3370; J7030; J7040